=== PATIENT | female | born 1990 | race Caucasian/White ===

== ENCOUNTER 2020-04-27 16:33 | Outpatient (CLI) | payer MEDICAID, SELFPAY | END 2020-04-27 16:34 | disposition home or self-care (01) | LOC: SPT 16:34 | PROVIDERS: Family Provider Family Medicine; PCP Family Medicine; Visit Provider Podiatrist Foot & Ankle Surgery | DX: Z46.89 Encounter for fitting and adjustment of other specified devices (principal); S99.922D Unspecified injury of left foot, subsequent encounter; X58.XXXD Exposure to other specified factors, subsequent encounter | CPT/HCPCS: 73630; 97760; L4361 ==

== ENCOUNTER 2020-05-16 15:04 | Outpatient (CLI) | payer MEDICAID, SELFPAY | END 2020-05-16 15:05 | disposition home or self-care (01) | LOC: SPT 15:05 | PROVIDERS: Family Provider Family Medicine; PCP Family Medicine; Visit Provider Podiatrist Foot & Ankle Surgery | DX: Z46.89 Encounter for fitting and adjustment of other specified devices (principal); S92.252A Displaced fracture of navicular [scaphoid] of left foot, initial encounter for closed fracture; S92.155A Nondisplaced avulsion fracture (chip fracture) of left talus, initial encounter for closed fracture; X58.XXXA Exposure to other specified factors, initial encounter | CPT/HCPCS: 97760; L1902 ==

== ENCOUNTER → 2021-07-12 11:00 | Outpatient (BNVA) | payer BC, MEDICAID, SELFPAY | PROVIDERS: Family Provider Family Medicine; PCP Registered Nurse; Visit Provider Registered Nurse | DX: M25.50 Pain in unspecified joint (principal); R63.5 Abnormal weight gain | CPT/HCPCS: 80053; 82607; 84443; 85025; 86140; 86431 ==

== ENCOUNTER → 2021-07-17 09:57 | Outpatient (BNVA) | payer BC, MEDICAID, SELFPAY | PROVIDERS: Family Provider Family Medicine; PCP Registered Nurse; Visit Provider Registered Nurse | DX: G89.29 Other chronic pain (principal); M25.50 Pain in unspecified joint | CPT/HCPCS: 86038 ==

== ENCOUNTER 2021-07-21 10:43 | Outpatient (CLI) | payer BC, MEDICAID, SELFPAY ==
--- NOTE | 2021-07-21 10:51 | XRR_ITS ---
PROCEDURE INFORMATION: Exam: XR Lumbosacral Spine Exam date and time: 07/21/2021 10:51 AM Age: 31 years old Clinical indication: Low back pain; Additional info: M54.50 - low back pain, unspecified TECHNIQUE: Imaging protocol: XR of the lumbosacral spine. Views: 2 or 3 views. COMPARISON: CT abdomen pelvis w con* [id number] 05/28/2017 11:02 PM FINDINGS: Bones/joints: Normal. No acute fracture. Normal alignment. Soft tissues: Unremarkable. XR/XR lumbar spine 2-3V* [id number] IMPRESSION: No significant abnormality.
== END 2021-07-21 10:44 | disposition home or self-care (01) ==
LOC: RAD 10:49
PROVIDERS: PCP Family Medicine; Visit Provider Registered Nurse
DX: M54.50 Low back pain, unspecified (principal); M79.604 Pain in right leg; M79.605 Pain in left leg
CPT/HCPCS: 72100

== ENCOUNTER → 2021-10-02 08:52 | Outpatient (BNVA) | payer BC, MEDICAID, SELFPAY | PROVIDERS: PCP Family Medicine; Visit Provider Registered Nurse | DX: E53.8 Deficiency of other specified B group vitamins (principal) | CPT/HCPCS: 82607 ==

== ENCOUNTER → 2021-10-26 14:09 | Outpatient (BNVA) | payer BC, MEDICAID, SELFPAY | PROVIDERS: PCP Family Medicine; Visit Provider Registered Nurse | DX: R10.9 Unspecified abdominal pain (principal) | CPT/HCPCS: 81000 ==

== ENCOUNTER → 2022-06-01 11:08 | Outpatient (BNVA) | payer BC, MEDICAID, SELFPAY | PROVIDERS: PCP Registered Nurse; Visit Provider Registered Nurse | DX: M25.562 Pain in left knee (principal); E53.8 Deficiency of other specified B group vitamins; E66.9 Obesity, unspecified | CPT/HCPCS: 80053; 82607 ==

== ENCOUNTER 2022-07-12 09:48 | Outpatient (CLI) | payer BC, MEDICAID, SELFPAY ==
--- NOTE | 2022-07-12 10:01 | XR_ITS ---
WS: [id number] XR knee LT 3V* [id number] REASON FOR EXAM: M25.562 - Pain in left knee FINDINGS: No fracture or focal bone lesion. The medial, lateral, and patellofemoral joint spaces are intact and well preserved. No soft tissue abnormality. XR/XR knee LT 3V* [id number] IMPRESSION: No significant abnormality.
== END 2022-07-12 09:49 | disposition home or self-care (01) ==
LOC: RAD 09:50
PROVIDERS: PCP Registered Nurse; Visit Provider Registered Nurse
DX: M25.562 Pain in left knee (principal)
CPT/HCPCS: 73562

== ENCOUNTER 2022-11-06 07:35 | Outpatient (CLI) | payer BC, MEDICAID, SELFPAY ==
--- NOTE | 2022-11-06 07:45 | US_ITS ---
WS: [id number] US pelv w/transvag [id number] HISTORY: E28.2 - Polycystic ovarian syndrome COMPARISON: 11/18/2015 Uterus: 9.3 cm x 5.7 cm x 4.2 cm. Normal size anteverted uterus. No fibroid or mass. Endometrium: 0.8 cm. Normal trilaminar endometrium. Right ovary: 2.7 cm x 1.5 cm x 1.6 cm. Normal size and vascularity, no cystic or solid masses. Small follicle, maximum diameter of 1.3 cm. Normal vascularity. Left ovary: 2.0 cm x 1.7 cm x 3.8 cm. Normal size and vascularity, no cystic or solid masses. Small c omplex follicle or corpus luteum LEFT ovary measures 1.6 x 1.1 x 1.0 cm. No free fluid in the cul-de-sac. US/US pelv w/transvag [id number] IMPRESSION: 1. Normal endometrium. 2. Small ovarian follicles and possible complex hemorrhagic corpus luteum LEFT ovary. No solid masses. 3. No fibroid.
== END 2022-11-06 07:36 | disposition home or self-care (01) ==
LOC: RAD 07:38
PROVIDERS: PCP Registered Nurse; Visit Provider Registered Nurse
DX: E28.2 Polycystic ovarian syndrome (principal)
CPT/HCPCS: 76830; 76856

== ENCOUNTER → 2022-11-20 14:50 | Outpatient (BNVA) | payer BC, MEDICAID, SELFPAY | PROVIDERS: PCP Registered Nurse; Visit Provider Registered Nurse | DX: N94.6 Dysmenorrhea, unspecified (principal); Z87.42 Personal history of other diseases of the female genital tract | CPT/HCPCS: 87081; 87205; 88175 ==

== ENCOUNTER → 2023-06-19 09:16 | Outpatient (BNVA) | payer BC, MEDICAID, SELFPAY | PROVIDERS: PCP Registered Nurse; Visit Provider Podiatrist Foot & Ankle Surgery | DX: S92.355D Nondisplaced fracture of fifth metatarsal bone, left foot, subsequent encounter for fracture with routine healing; X58.XXXD Exposure to other specified factors, subsequent encounter | CPT/HCPCS: 73630 ==

== ENCOUNTER → 2023-07-10 08:32 | Outpatient (BNVA) | payer BC, MEDICAID, SELFPAY | PROVIDERS: PCP Registered Nurse; Visit Provider Podiatrist Foot & Ankle Surgery | DX: S92.352A Displaced fracture of fifth metatarsal bone, left foot, initial encounter for closed fracture (principal); X58.XXXA Exposure to other specified factors, initial encounter | CPT/HCPCS: 73630 ==

== ENCOUNTER → 2023-07-31 09:15 | Outpatient (BNVA) | payer BC, MEDICAID, SELFPAY | PROVIDERS: PCP Registered Nurse; Visit Provider Podiatrist Foot & Ankle Surgery | DX: S92.355G Nondisplaced fracture of fifth metatarsal bone, left foot, subsequent encounter for fracture with delayed healing; X58.XXXD Exposure to other specified factors, subsequent encounter | CPT/HCPCS: 73630 ==

== ENCOUNTER → 2023-08-28 11:28 | Outpatient (BNVA) | payer BC, MEDICAID, SELFPAY | PROVIDERS: PCP Registered Nurse; Visit Provider Podiatrist Foot & Ankle Surgery | DX: S92.355D Nondisplaced fracture of fifth metatarsal bone, left foot, subsequent encounter for fracture with routine healing; X58.XXXD Exposure to other specified factors, subsequent encounter | CPT/HCPCS: 73630 ==

== ENCOUNTER → 2023-11-05 15:40 | Outpatient (BNVA) | payer BC, MEDICAID, SELFPAY | PROVIDERS: PCP Registered Nurse; Visit Provider Registered Nurse | DX: E53.8 Deficiency of other specified B group vitamins (principal); R59.0 Localized enlarged lymph nodes | CPT/HCPCS: 85025; 86140 ==

== ENCOUNTER → 2024-03-05 08:35 | Outpatient (BNVA) | payer BC, MEDICAID, SELFPAY | PROVIDERS: PCP Registered Nurse; Visit Provider Registered Nurse | DX: E53.8 Deficiency of other specified B group vitamins (principal) | CPT/HCPCS: 82607 ==

== ENCOUNTER → 2024-05-06 10:29 | Outpatient (BNVA) | payer BC, MEDICAID, SELFPAY | PROVIDERS: PCP Registered Nurse; Visit Provider Podiatrist Foot & Ankle Surgery | DX: M79.672 Pain in left foot (principal); M72.2 Plantar fascial fibromatosis | CPT/HCPCS: 73630 ==

== ENCOUNTER → 2024-05-18 10:48 | Outpatient (BNVA) | payer BC, MEDICAID, SELFPAY | PROVIDERS: PCP Registered Nurse; Visit Provider Registered Nurse | DX: R30.0 Dysuria | CPT/HCPCS: 81000 ==

== ENCOUNTER → 2024-12-08 11:50 | Outpatient (BNVA) | payer BC, MEDICAID, SELFPAY | PROVIDERS: PCP Registered Nurse; Visit Provider Nurse Practitioner | DX: S91.332A Puncture wound without foreign body, left foot, initial encounter (principal); W45.0XXA Nail entering through skin, initial encounter | CPT/HCPCS: 73630 ==

== ENCOUNTER → 2024-12-30 07:38 | Outpatient (BNVA) | payer BC, MEDICAID, SELFPAY | PROVIDERS: PCP Registered Nurse; Visit Provider Registered Nurse | DX: N92.1 Excessive and frequent menstruation with irregular cycle (principal); E53.8 Deficiency of other specified B group vitamins | CPT/HCPCS: 80053; 81025; 82607; 84702; 85025 ==

== ENCOUNTER → 2025-01-15 10:00 | Outpatient (BNVA) | payer BC, MEDICAID, SELFPAY | PROVIDERS: PCP Registered Nurse; Visit Provider Obstetrics & Gynecology | DX: Z87.42 Personal history of other diseases of the female genital tract (principal); N92.1 Excessive and frequent menstruation with irregular cycle; E66.9 Obesity, unspecified | CPT/HCPCS: 82947; 84146; 84402; 84403; 84443 ==

== ENCOUNTER → 2025-01-19 15:33 | Outpatient (BNVA) | payer BC, MEDICAID, SELFPAY | PROVIDERS: PCP Registered Nurse; Visit Provider Obstetrics & Gynecology | DX: N92.1 Excessive and frequent menstruation with irregular cycle (principal); R10.2 Pelvic and perineal pain; R93.89 Abnormal findings on diagnostic imaging of other specified body structures | CPT/HCPCS: 76830 ==